=== PATIENT | male | born 1970 | race Caucasian/White ===

== ENCOUNTER 2017-03-04 21:21 | Emergency (ER) | payer SELFPAY ==
[2017-03-04] MEDS ORDERED: Adacel (T-DAP) 0.5 ML VIAL ONE (22:30)
[2017-03-04] MEDS ORDERED: Sulfameth/Trimethoprim DS 800-160mg TAB ONE (22:44)
== END 2017-03-04 23:26 | disposition home or self-care (01) ==
LOC: BURERS 21:21
DX: L02.424 Furuncle of left upper limb (principal)
CPT/HCPCS: 90471; 90715

== ENCOUNTER 2018-09-29 20:24 | Emergency (ER) | payer SELFPAY ==
[2018-09-29] MEDS ORDERED: Ibuprofen 800 MG TAB ONE (20:55)
[2018-09-29 21:24] LABS: Clarity Slightly Cloudy (Clear); Leukocyte Large (Negative); Nitrite Negative (Negative)
[2018-09-29 21:25] LABS: Bilirubin Negative (Negative); Blood, Urine Small (Negative); Glucose, Urine (Dipstick) Negative (Negative); Protein, Urine (Dipstick) Negative (Neg-Trace)
[2018-09-29 21:33] LABS: Bacteria/HPF 1+ HPF (None Seen); Squamous Epithelial 0-3 HPF (0-3)
[2018-09-29] MEDS ORDERED: cefTRIAXone\\ROCEPHIN 2 GM VIAL ONE (22:12)
[2018-09-29 22:18] LABS: #Basophils 0.1 thou/uL (0.0-0.2); #Eosinphils 0.2 thou/uL (0.0-0.7); #Lymphocytes 2.3 thou/uL (1.20-3.40); #Monocytes 1.2 thou/uL (0.11-0.59); #Neutrophils 8.5 thou/uL (1.40-6.50); %Eosinophils 1.8 % (0.0-10.0); %Lymphocytes 18.8 % (21.0-51.0); %Monocytes 9.3 % (0.0-10.0); %Neutrophils 69.2 % (42.0-75.0); Hemoglobin 12.7 g/dL (14.0-18.0); Mean Corpuscular HGB CONC 35.4 g/dL (32.0-36.0); Mean Corpuscular Hemoglobin 29.7 pg (27.0-31.0); Mean Corpuscular Volume 83.8 fL (78.0-98.0); Mean Platelet Volume 7.3 fL (7.4-10.4); Platelet Count 232 thou/uL (130-400); RBC Distribution Width 11.6 % (11.5-14.5); Red Blood Cell (RBC) Count 4.27 mill/uL (4.70-6.10); White Blood Cell (WBC) Count 12.3 thou/uL (4.8-10.8)
[2018-09-29 22:27] LABS: ALT (SGPT) 31 U/L (8-55); AST (SGOT) 15 U/L (5-34); Albumin 4.1 g/dL (3.5-5.0); Alkaline Phosphatase 73 U/L (40-150); Anion Gap 14 mmol/L (10-20); BUN (Urea Nitrogen) 13 mg/dL (8.9-20.6); Bilirubin, Total 0.5 mg/dL (0.2-1.2); Calc. Creatinine Clearance 0 mL/min (70-130); Calcium 9.4 mg/dL (7.8-10.44); Carbon Dioxide 23 mmol/L (22-29); Chloride 104 mmol/L (98-107); Estimated GFR-MDRD Greater than 90; Globulin 2.9 g/dL (2.4-3.5); Glucose 96 mg/dL (70-105); Potassium 3.8 mmol/L (3.5-5.1); Sodium 137 mmol/L (136-145)
== END 2018-09-29 22:59 | disposition home or self-care (01) ==
LOC: BURERS 20:24
DX: D64.9 Anemia, unspecified (principal); N12 Tubulo-interstitial nephritis, not specified as acute or chronic; Z79.899 Other long term (current) drug therapy
CPT/HCPCS: 36416; 80053; 81003; 81015; 83605; 85025; 87040; 87077; 87086; 87186; 87804; 96365; 36415-59; J0696

== ENCOUNTER 2020-09-05 15:42 | Emergency (ER) | payer SELFPAY ==
[2020-09-05] MEDS ORDERED: methylPREDNISolone Sod Succ/PF 125 MG/2 ML VIAL ONE (16:29)
== END 2020-09-05 16:50 | disposition home or self-care (01) ==
LOC: BURERS 15:42
DX: L23.7 Allergic contact dermatitis due to plants, except food (principal); I10 Essential (primary) hypertension; N40.0 Benign prostatic hyperplasia without lower urinary tract symptoms; E78.00 Pure hypercholesterolemia, unspecified
CPT/HCPCS: 96372; 99282; J2930

== ENCOUNTER 2021-05-07 11:46 | Emergency (ER) | payer OTHER, SELFPAY ==
[2021-05-07] MEDS ORDERED: Lidocaine 1% PF 5 ML VIAL ONE (12:11)
[2021-05-07] MEDS ORDERED: Sulfameth/Trimethoprim DS 800-160mg TAB ONE (12:38)
[2021-05-07] MEDS ORDERED: Bacitracin 1 PK ONE (12:38)
== END 2021-05-07 12:44 | disposition home or self-care (01) ==
LOC: BURERS 11:46
DX: L02.511 Cutaneous abscess of right hand (principal); I10 Essential (primary) hypertension; E78.00 Pure hypercholesterolemia, unspecified; Z79.899 Other long term (current) drug therapy
CPT/HCPCS: 26010

== ENCOUNTER 2021-08-31 18:10 | Emergency (ER) | payer OTHER | END 2021-08-31 19:10 | disposition home or self-care (01) | LOC: BURERS 18:10 | DX: S13.4XXA Sprain of ligaments of cervical spine, initial encounter (principal); M54.50 Low back pain, unspecified; V54.6XXA Passenger in pick-up truck or van injured in collision with heavy transport vehicle or bus in traffic accident, initial encounter; I10 Essential (primary) hypertension; E78.00 Pure hypercholesterolemia, unspecified | CPT/HCPCS: 99283 ==

== ENCOUNTER 2022-10-02 22:41 | Emergency (ER) | payer OTHER, SELFPAY ==
[2022-10-02] MEDS ORDERED: Ketorolac Tromethamine 60 MG/2 ML VIAL ONE (23:09)
[2022-10-02] MEDS ORDERED: traMADol HCl 50 MG TAB ONE ×2 (23:09→23:19)
== END 2022-10-02 23:40 | disposition home or self-care (01) ==
LOC: BURERS 22:41
DX: M25.511 Pain in right shoulder (principal); K21.9 Gastro-esophageal reflux disease without esophagitis; I10 Essential (primary) hypertension; E78.00 Pure hypercholesterolemia, unspecified; F17.200 Nicotine dependence, unspecified, uncomplicated; Z79.899 Other long term (current) drug therapy
CPT/HCPCS: 96372; J1885

== ENCOUNTER 2024-08-21 01:15 | Emergency (ER) | payer SELFPAY ==
[2024-08-21] MEDS ORDERED: Morphine 2 MG/ML VIAL ONE (01:52)
== END 2024-08-21 02:06 | disposition home or self-care (01) ==
LOC: BURERS 01:15
DX: M25.511 Pain in right shoulder (principal); I10 Essential (primary) hypertension
CPT/HCPCS: 96372; 99283; J2272